=== PATIENT | male | born 1950 | race Caucasian/White ===

== ENCOUNTER → 2020-05-29 | Outpatient (CLI) | payer OTHER, SELFPAY | LOC: EMI 08:30 | DX: M25.561 Pain in right knee (principal); M25.361 Other instability, right knee; S83.241A Other tear of medial meniscus, current injury, right knee, initial encounter; M71.21 Synovial cyst of popliteal space [Baker], right knee | CPT/HCPCS: 73721 ==

== ENCOUNTER → 2020-07-28 | Outpatient (CLI) | payer OTHER, SELFPAY | LOC: NM 12:58 | DX: R07.9 Chest pain, unspecified (principal) | CPT/HCPCS: 78452; 93017; A9502 ==